=== PATIENT | male | born 1980 | race Two or more races ===

== ENCOUNTER 2023-08-26 08:43 | Emergency (ER) | payer OTHER ==
[~2023-08-26] VITALS: Ht 180.3 cm; Wt 81.6 kg
[2023-08-26 09:58] LABS: HEMATOCRIT 44.5 % (39.0-48.0); HEMOGLOBIN 15.2 g/dL (13-16.00); MEAN CELL VOLUME 86.9 fL (80.0-100.00); MEAN CORPUSCULAR HEMOGLOBIN 29.7 pg (27.00-32.0); MEAN CORPUSCULAR HGB CONC 34.2 g/dl (32.0-36.0); PLATELET COUNT 287 K/uL (150-450); RED BLOOD COUNT 5.12 M/uL (4.00-6.00); RED CELL DISTRIBUTION WIDTH 13.1 % (11.5-14.5)
[2023-08-26 10:35] LABS: ERYTHROCYTE SEDIMENTATION RATE 11 mm/hr
[2023-08-26 10:39] LABS: ALBUMIN 3.9 gm/dL (3.4-5.0); BILIRUBIN TOTAL 0.55 mg/dL (0.3-1.2); CALCIUM 10.2 mg/dL (8.5-10.1); GFR 81.17; GLOBULINA 4.2 G/DL (2.4-3.5); POTASSIUM 4.22 mEq/L (3.5-5.1); TOTAL PROTEIN 8.1 gm/dL (6.4-8.2)
[2023-08-26 10:42] LABS: C-REACTIVE PROTEIN 0.67 MG/DL (0.00-0.29)
== END 2023-08-26 11:09 | disposition home or self-care (01) ==
LOC: ER 08:43
PROVIDERS: General Practice
DX: R53.81 Other malaise (principal); R51.9 Headache, unspecified